=== PATIENT | female | born 1985 | race Caucasian/White ===

== ENCOUNTER 2021-05-05 01:51 | Emergency (ER) | payer OTHER, MEDICAID ==
[~2021-05-05] VITALS: Ht 160 cm; Wt 63.0 kg
[2021-05-05] MEDS ORDERED: HIBICLENS118 ML TOP (05:15)
[2021-05-05] MEDS ORDERED: DOXYCYCLINE 10100 MG PO (05:15)
[2021-05-05] MEDS ORDERED: TRAMADOL 50 MG50 MG PO (05:16)
[2021-05-05 05:26] VITALS: BP 132/68
== END 2021-05-05 05:27 | disposition home or self-care (01) ==
LOC: M.ERS 01:51
DX: L02.415 Cutaneous abscess of right lower limb (principal); F17.210 Nicotine dependence, cigarettes, uncomplicated